=== PATIENT | female | born 1970 | race Caucasian/White ===

== ENCOUNTER 2018-11-18 17:20 | Emergency (ER) | payer OTHER ==
[~2018-11-18] VITALS: Ht 165.1 cm; Wt 74.8 kg
[2018-11-18] MEDS ORDERED: PENICILLIN V P500 MG PO (17:57)
[2018-11-18] MEDS ORDERED: ULTRAM 50MG TAB50 MG PO (17:57)
[2018-11-18] MEDS ORDERED: NAPROSYN500 MG PO (17:57)
[2018-11-18] MEDS ORDERED: HYDROCHLOROTH12.5 M2 PO (18:00)
[2018-11-18 18:56] VITALS: BP 192/99
== END 2018-11-18 18:45 | disposition home or self-care (01) ==
LOC: ER 17:20
DX: K02.9 Dental caries, unspecified (principal); K04.7 Periapical abscess without sinus; I10 Essential (primary) hypertension

== ENCOUNTER 2019-06-20 15:19 | Inpatient (IN) | payer OTHER ==
[~2019-06-20] VITALS: Ht 165.1 cm; Wt 77.8 kg
--- NOTE | ~2019-06-20 | H ---
[facility] [place] [address] HISTORY AND PHYSICAL Name: FRANCISCA SLATER Room #: 170-7 ADM IN M.R.#: [id number] Admission: 06/20/19 ������������������ Attend Phys: Carmelita Pickard MD Discharge: ������������������ Date of : 66 Report #: [id number] THIS REPORT FOR: //name// CC: [facility] physician/PCP Carmelita Pickard DATE OF SERVICE: 06/20/2019 CHIEF COMPLAINT: Difficulty breathing and persistent cough. HISTORY OF PRESENT ILLNESS: The patient is a very pleasant 49-year-old female with a known history of rheumatoid arthritis, which was diagnosed 10 years ago and also has asthma and informs me that she has been having upper respiratory infection and cough, cold for the last couple of days, actually for at least 3-4 weeks and she does not have a primary care provider, so she went to see a provider at [facility] as a walk-in. She was evaluated and was given a breathing treatment and prednisone and a cough syrup and was advised to come back for followup, however, for the last 1-1/2 days her cough and shortness of breath has progressively worsened and she has been having some fever as well as sweats and chills. The patient realized that she was not getting better and so she decided to come to the hospital for further evaluation. The patient has not had any exposure to any sick contact and has not had any sore throat, sinus drainage or ear infections. The patient denies any associated nausea, vomiting, diarrhea or GI issues. The patient has not had any dysuria, hematuria, back pain, frequency, urgency of urination as well. REVIEW OF SYSTEMS: Completely negative for any dizziness, lightheadedness or syncopal episodes, chest pain, or palpitations. The patient, however, informs me that since she has been in the Emergency Room and for the last few hours she has felt that her heart rate is little faster and she has felt like she has high fever and she feels hot and cold with frequent change in her feeling of feeling very, very hot and then very, very cold, but has not taken a temperature and so cannot really tell me how high the fever has been. PAST MEDICAL HISTORY: Significant for: 1. Bronchial asthma, not treated. 2. Rheumatoid arthritis diagnosed 10 years ago, but not treated. 3. Multiple neuromas which has been resected at different times. 4. Degenerative joint disease with joint deformities related to rheumatoid arthritis. ALLERGIES: The patient has no known drug allergies. CURRENT MEDICATIONS: She has completed the course of prednisone, cough syrup and an [place] [address] HISTORY AND PHYSICAL Name: FRANCISCA SLATER Room #: 170-7 [facility] IN .R.#: [id number] Admission: 06/20/19 ������������������ Attend Phys: Carmelita Pickard MD Discharge: ������������������ Date of : 66 Report #: [id number] PERSONAL AND SOCIAL HISTORY: The patient quit smoking 6 months ago and prior to that, she was smoking half pack per day. She denies any alcohol intake and denies any recreational drug use. Her emergency contact is a 23-year-old daughter, Carla Chavez and her number is [phone] and the patient wishes to be full code. 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 FAMILY HISTORY: Significant for mother dealing with some abdominal cancer. She thinks it is colon cancer, but not sure in [place] and father who is dealing with diabetes mellitus type 2. PAST SURGICAL HISTORY: Significant for resection of neuromas in right wrist as well as left wrist and also deviated nasal septum surgery and some foot surgery. REVIEW OF SYSTEMS: Please see 10-point review of systems above. PHYSICAL EXAMINATION: VITAL SIGNS: Temperature 38.4, heart rate 127, respirations 16, blood pressure 136/82, pulse oximetry 91% on 2 liters of oxygen by nasal cannula in the Emergency Room. GENERAL: Alert and oriented to time, place and person, very pleasant 49-year-old female with flushed face as well as diaphoresis and has mild tachypnea, but no use of accessory muscles of respiration and sitting upright and able to finish sentences completely. HEENT: Normocephalic, atraumatic. Pupils are equally round and reactive to light. Conjunctivae are clear. Sclerae are nonicteric. Extraocular muscle movements are intact. Oropharynx is clear. No postnasal drip is noted. NECK: Supple, no lymphadenopathy, no JVD. HEART: S1, S2 regular. Tachycardia noted. No murmur, no S3, no S4. LUNGS: Bilaterally very poor air entry with expiratory wheezes scattered in all lung murphy. Bilaterally symmetrical chest expansion present as noted above. No accessory muscles of respiration are being used. ABDOMEN: Soft, nontender, nondistended, normoactive bowel sounds. The patient does not have any organomegaly. EXTREMITIES: No edema in both lower extremities. SKIN: The patient has a well-healed scar in both her extremities as well as in the foot and no rashes noted. NEUROLOGIC: Completely nonfocal. LABORATORY DATA: The patient has a urinalysis with a pH of 6.0, specific gravity 1.005 and 3+ blood and otherwise completely negative. Hematology indicates WBC elevated to 22,000 with 84% segmented neutrophil and 8% band neutrophils. The patient has some lymphopenia noted as 4000, hemoglobin is 12.7, hematocrit is 38.0. Next chemistries indicate sodium 133, potassium 3.7, chloride 99, bicarbonate 21, anion gap 13, BUN 7, creatinine 0.8, calculated GFR 76, glucose 147. Lactic acid was 1.4, calcium 8.1, total bilirubin 0.5, AST 13, [facility] [address] [place] [address] HISTORY AND PHYSICAL Name: FRANCISCA SLATER Room #: 170-7 ADM IN [facility]#: [id number] Admission: 06/20/19 ������������������ Attend Phys: Carmelita Pickard MD Discharge: ������������������ Date of : 66 Report #: [id number] ALT 23, alkaline phosphatase 84, total protein 7.6, albumin 3.3 and procalcitonin 0.08. Electrocardiogram was done and that indicated a sinus tachycardia, left atrial enlargement and borderline repolarization changes, otherwise no acute changes and chest x-ray indicates no acute radiographic abnormality in the chest. ASSESSMENT AND PLAN: 1. Acute asthma exacerbation. 2. Community-acquired pneumonia or pneumonitis with bronchitis. 3. SIRS as indicated with a fever, tachycardia and acute asthma exacerbation. 4. Rheumatoid arthritis with underlying immunocompromised state. 5. Bronchial asthma. 6. The patient is full code. DVT prophylaxis with Lovenox and GI prophylaxis with Pepcid. PLAN: The patient is being admitted to the Med/Surg telemetry and would go ahead and give antibiotics for community-acquired pneumonia coverage and she has received normal saline bolus in the Emergency Room. I would go ahead and add vancomycin because of the patient being immunocompromised and she has significant bandemia with leukocytosis of 22,000 and because of lack of health care as well as when she presented to [facility] services she was given prednisone, but she was not given any antibiotics and the patient has this acute worsening of illness for the last 2 days with fever and chills and so we will cover with additional coverage with vancomycin until the cultures are back. Strep pneumo antigen and legionella antigen have been sent and we will go ahead and do respiratory viral panel as well. We will go ahead and write for DuoNeb breathing treatments q.4 hours and plan of care was discussed with the patient. We will put pharmacy consult for vancomycin monitoring and we will write for albuterol q. 2 hour p.r.n. as needed for wheezing in between and Solu-Medrol 125 mg has been given for acute asthma exacerbation and I would go ahead and would give 80 mg of Solu-Medrol q. 8 hours and reassess. If the patient does not respond to the management, then only we will consult Pulmonary and plan of care was discussed with the patient in detail as well as with the ER provider and the nurse taking care of the patient in the Emergency Room. ��������������������������������������������� ���������������������������������������� By: ��������������������������������������������� 1859 30 Carmelita Pickard MD /nt
[~2019-06-20 15:19] MED LIST: HYDROCHLOROTH12.5 M2 PO; NAPROSYN500 MG PO; PENICILLIN V P500 MG PO; ULTRAM 50MG TAB50 MG PO
[2019-06-20 15:20] VITALS: BP 136/82
[2019-06-20] MEDS ORDERED: LISINOPRIL10 MG PO (15:25)
[2019-06-20] MEDS ORDERED: ACCUNEB SO1.25 MG/1 INH (15:25)
[2019-06-20 15:53] LABS: HEMATOCRIT 38.5 % (37.0-47.0); HEMOGLOBIN 12.7 gm/dL (12.0-15.0); MCH 28.9 pg (26.0-34.0); MCV 87.6 fL (80.0-100.0); PLATELET COUNT 342 thou/uL (150-400); RDW 12.6 % (10.5-14.5)
[2019-06-20 16:00] LABS: CALCIUM 8.1 mg/dL (8.5-10.1); CREATININE 0.8 mg/dL (0.6-1.0); POTASSIUM 3.7 mmol/L (3.5-5.1)
[2019-06-20 16:06] LABS: ALBUMIN 3.3 g/dL (3.4-5.0); TOTAL BILIRUBIN 0.5 mg/dL (<0.1-1.0); TOTAL PROTEIN 7.6 g/dL (6.4-8.2)
[2019-06-20 16:11] LABS: ABSOLUTE NEUTROPHILS 20.2 thou/uL (1.4-8.2); PLATELET ESTIMATE NORMAL
[2019-06-20 16:44] LABS: URINE BILIRUBIN NEGATIVE (Negative); URINE BLOOD 3+ (Negative); URINE CLARITY CLEAR; URINE COLOR YELLOW; URINE GLUCOSE-RANDOM* NEGATIVE (Negative); URINE KETONES NEGATIVE (Negative); URINE LEUKOCYTES-REFLEX NEGATIVE (Negative); URINE NITRITE-REFLEX NEGATIVE (Negative); URINE PROTEIN (DIPSTICK) NEGATIVE (Negative); URINE SPECIFIC GRAVITY <= 1.005 (1.005-1.035); URINE UROBILINOGEN 0.2 E.U./dl (0.2-1.0)
[2019-06-20 16:54] LABS: BACTERIA-REFLEX 1-9 Few /HPF (None Seen); CASTS None Seen /LPF (None Seen); CRYSTALS None Seen /LPF (None Seen); SQUAMOUS 0-3 Few /LPF (0-3); URINE RBC 0-2 Rare /HPF (0-2); URINE WBC-REFLEX None Seen /HPF (0-5)
[2019-06-20 17:20] VITALS: BP 139/72
[2019-06-20 19:51] VITALS: BP 112/61
[2019-06-20 20:17] VITALS: BP 112/61
[2019-06-20 20:35] VITALS: BP 113/64
--- NOTE | 2019-06-20 21:23 | NUR ---
PT ARRIVED ON UNIT AT 2019 IN STABLE CONDITION. PT ORIENTED TO ROOM. PLACED ON TELEMETRY. WILL ADMIT PT.
[2019-06-20 23:54] VITALS: BP 121/68
[2019-06-21] VITALS (7 sets, daily range): BP systolic 131–168; BP diastolic 69–101
--- NOTE | 2019-06-21 04:30 | NUR ---
PT REMAINS WEAK AND FATIGUED BUT IN BED RESTING. HAS HAD DRY COUGH OFF AND ON ALL NIGHT BUT HAS PRN ROBUTUSSIN AVAILABLE. REMAINS ON MAINTENANCE IVFs. SR/ST ON MONITOR. CONTINUES WITH RT TX AND SOLUMEDROL. PT HAS BEEN AFEBRILE.
--- NOTE | 2019-06-21 05:41 | NUR ---
ON ADMIT, DISCUSSED WITH PT REGARDING SIGNING CONSENT FOR TELE INTERFERENCE, ALLOWED FOR QUESTIONS AND PT V/U
[2019-06-21 05:45] LABS: CALCIUM 8.7 mg/dL (8.5-10.1); CREATININE 0.7 mg/dL (0.6-1.0); HEMATOCRIT 38.2 % (37.0-47.0); HEMOGLOBIN 12.2 gm/dL (12.0-15.0); MAGNESIUM 1.9 mg/dL (1.8-2.4); MCH 28.4 pg (26.0-34.0); MCV 88.9 fL (80.0-100.0); PHOSPHORUS 3.3 mg/dL (2.5-4.9); POTASSIUM 3.7 mmol/L (3.5-5.1); RBC 4.3 mil/uL (4.20-5.00); RDW 12.8 % (10.5-14.5); WBC 16.2 thou/uL (4.0-11.0)
--- NOTE | 2019-06-21 14:43 | EKG ---
[address] [address] ELECTROCARDIOGRAM REPORT Name: BRYON,FRANCISCA Room #: 203-P ADM IN M.R.#: [id number] ������������������ Admission: 06/20/19 ������������������ Attend Phys: Camrelita Pickard MD Discharge: ������������������ Date of : 66 Report #: [id number] ����������������������������������������������������������������� [id number] THIS REPORT FOR: //name// [facility] ED Test Date: 2019-06-20 Test Time: 15:29:28 Pat Name: FRANCISCA SLATER Department: Room: 203 Gender: F Head Bookkeeper: ISAEL : 1970 Requested By: Mukesh Hale Order Number: [id number] MD: Robles Conner Measurements Intervals [place] Rate: 127 P: 77 AL: 127 QRS: 54 QRSD: 82 T: 224 QT: 266 QTc: 387 Interpretive Statements Sinus tachycardia Left atrial enlargement Borderline repolarization abnormality No previous ECG available for comparison Electronically Signed On 06-21-2019 14:43:09 CDT by Robles Conner [email or web address] ��������������������������������������������� <ELECTRONICALLY SIGNED> ���������������������������������������� By: Robles Conner MD ��������������������������������������������� 06/21/19 1443 1529 1529 Robles Conner MD /EPI
--- NOTE | 2019-06-21 16:12 | NUR ---
Chart reviewed and cm assessment completed at bedside. Pt is a&ox4 and indicates that she lives with her dtr in an apt. She works parttime but struggles due to hx of RA. She moved here from [place] 6+months ago and has struggled to access medical treatment. She has been to [facility] a couple of times and [place]. She has never heard if approved or denied. She notes her health has declined significantly since her move here and feels she many no longer be able to work. [facility] referal in process to help with [place] disability and [place]. Pt was tearful and frustrated that she her immune system is compromised. Support provided. Plan to f/u with [facility] services at pr.
--- NOTE | 2019-06-21 18:16 | NUR ---
ASSUMED CARE AROUND 0700. AXOX4. C/O L SIDED HEADAHCE AND FACE ACHE. REPORTED TO AND ORDERS ARE RECEIVED. CT CHEST COMPLETED AND RESULTS WAS DISCUSSED WITH AND PATIENT AT BEDSIDE. C/O EXCESSIVE COUGHINH WITH TACHYCARDIA. PT WAS USING INHALER FROM HOME. MED NOW STORED IN PHARMACY. HIGH BP ADDRESSED WITH . PRN HYDRALAZINE GIVEN TO PT. NO S/S ACUTE DISTRESS NOTED OR REPORTED AT THIS TIME. WILL CONT TO MONITOR FOR ANY CHANGES IN CONDITION.
[2019-06-22 00:07] VITALS: BP 154/89
[2019-06-22 03:37] VITALS: BP 150/83
[2019-06-22 05:30] LABS: HEMATOCRIT 32.5 % (37.0-47.0); HEMOGLOBIN 10.6 gm/dL (12.0-15.0); MCHC 32.7 g/dL (28.0-37.0); MCV 88.7 fL (80.0-100.0); RBC 3.67 mil/uL (4.20-5.00); RDW 12.8 % (10.5-14.5)
[2019-06-22 05:55] LABS: CALCIUM 8.3 mg/dL (8.5-10.1); CREATININE 0.6 mg/dL (0.6-1.0); MAGNESIUM 1.8 mg/dL (1.8-2.4); PHOSPHORUS 3.6 mg/dL (2.5-4.9); POTASSIUM 3.6 mmol/L (3.5-5.1)
--- NOTE | 2019-06-22 06:53 | NUR ---
ASSUMED CARE OF PT @1900 PT A&OX4 WITH C/O COUGHING AND PAIN. MEDS GIVEN SEE EMAR. PT UP AD JOANNA TO THE BATHROOM. ON SINUS TACHY WHEN COUGHING. PT HAD A BATH TONIGHT. COUGH SYRUP GIVEN FOR MGMNT WILL CONT TILL EOS
[2019-06-22 07:40] VITALS: BP 141/75
[2019-06-22 11:25] VITALS: BP 146/78
[2019-06-22 15:50] VITALS: BP 159/93
--- NOTE | 2019-06-22 18:50 | NUR ---
CAME FROM SECOND FLOOR, AT 1840, SHE IS ALERT AND ORIENTED X 4, ONLY COMPLAINT IS FEELING SOB, RT NOTIFIED AND IS HERE NOW ADMINISTERING RT TX, SHE DENIES PAIN AND DENIES ANY NEEDS AT THIS TIME.
--- NOTE | 2019-06-22 19:01 | NUR ---
ASSUMED CARE OF PATIENT AT 0700. ASSESSMENTS CHARTED. PATIENT HAS A PRODUCTIVE COUGH AND COMPLAINS OF A HEADACHE FROM COUGHING. EXTRA STRENGTH TYLENOL ALLEVIATED THE HEADACHE. PATIENT ON Q6 GUAIFENESIN LIQUID WHICH WE TOOK IN A SCHEDULED FORMATION AND PUSHED FLUIDS, THIS SIGNIFICANTLY DECREASED HER COUGH TODAY. PATIENT GETTING BLOOD SUGARS CHECKED AC&HS IN THE 200-300'S. PATIENT INFORMED THIS AFTERNOON THAT SHE IS A NEWLY DIAGNOSED DIABETIC. PATIENT INFORMATION PRINTED OUT AND GIVEN TO THE PATIENT. PATIENT DOING MUCH BETTER THAN SHE WAS AT THE BEGINNING OF THE SHIFT. PATIENT TRANSFERRED TO [facility] AT 1800.
[2019-06-22 20:35] VITALS: BP 148/85
[2019-06-23 04:08] VITALS: BP 152/89
[2019-06-23 05:36] LABS: CALCIUM 8.5 mg/dL (8.5-10.1); CREATININE 0.6 mg/dL (0.6-1.0); MAGNESIUM 1.9 mg/dL (1.8-2.4); PHOSPHORUS 4.5 mg/dL (2.5-4.9)
[2019-06-23 05:39] LABS: HEMATOCRIT 31.5 % (37.0-47.0); HEMOGLOBIN 10.5 gm/dL (12.0-15.0); MCH 29.3 pg (26.0-34.0); MCHC 33.2 g/dL (28.0-37.0); MCV 88.2 fL (80.0-100.0); RBC 3.57 mil/uL (4.20-5.00); RDW 12.8 % (10.5-14.5); WBC 15.7 thou/uL (4.0-11.0)
--- NOTE | 2019-06-23 07:38 | NUR ---
PATIENT ALERT AND ORIENTED X4. IVF INFUSING W/O COMPLICATION ALONG WITH IVPB ANTIBIOTICS. PATIENT HAS A COUGH AND REQUIRES RT TREATMENTS. MEDICATED WITH GUAIFENESIN, TYLENOL AND BENEDRYL. BS MONITORED PER ORDER. RESTING QUIETLY.
[2019-06-23 08:36] VITALS: BP 149/84
[2019-06-23 13:45] VITALS: BP 150/83
--- NOTE | 2019-06-23 19:44 | NUR ---
PT ASSESSED AT START OF SHIFT. C/O CONSTIPATION CHRONIC PROBLEM. SM BM THIS SHIFT AFTER LAXATIVE AND SUPPOSITORY. AMBULATED THE HALSS W/ PULSE OX ON 3LNC. SAT 96%, DROPPED TO 93% AND HEART RATE UP TO 110 W/ WALK AROUND THE UNIT. STATES SHE'S FEELING MUCH BETTER THIS EVENING FROM THIS AM.
[2019-06-23 20:19] VITALS: BP 128/81
--- NOTE | 2019-06-24 00:49 | NUR ---
PT IS ALERT AND ORIENTED. SHE REMAINS UP AD JOANNA. DENIES PAIN. GETTING BREATHING TREATMENTS NEEDED. PT GOT A SHOWER. CONTINUES ON IV ABTS AND FLUIDS.AFEBRILE. DENIES COUGH. WILL CONTINUE WITH POC TILL EOS.
[2019-06-24 04:00] VITALS: BP 157/90
[2019-06-24 06:25] LABS: HEMATOCRIT 34.7 % (37.0-47.0); HEMOGLOBIN 11.4 gm/dL (12.0-15.0); MCH 28.9 pg (26.0-34.0); MCHC 32.7 g/dL (28.0-37.0); MCV 88.2 fL (80.0-100.0); PLATELET COUNT 414 thou/uL (150-400); RBC 3.94 mil/uL (4.20-5.00); RDW 12.8 % (10.5-14.5); WBC 15.2 thou/uL (4.0-11.0)
[2019-06-24 06:36] LABS: CALCIUM 8.9 mg/dL (8.5-10.1); CREATININE 0.7 mg/dL (0.6-1.0); PHOSPHORUS 4.4 mg/dL (2.5-4.9); POTASSIUM 3.6 mmol/L (3.5-5.1)
[2019-06-24 07:19] LABS: ABSOLUTE NEUTROPHILS 9.4 thou/uL (1.4-8.2); ANISOCYTOSIS SLIGHT; METAMYELOCYTES 3 %; MYELOCYTES 1 %
[2019-06-24 07:45] VITALS: BP 172/96
[2019-06-24] MEDS ORDERED: CARDIZEM CD120 MG PO (11:47)
[2019-06-24] MEDS ORDERED: GLIPIZIDE 5 MG T5 MG PO (11:47)
[2019-06-24] MEDS ORDERED: PREDNISONE 10 M10 MG PO (11:48)
[2019-06-24] MEDS ORDERED: AUGMENTIN 875-1 EACH PO (11:49)
[2019-06-24] MEDS ORDERED: FLOVENT HFA 4444 MCG INH (11:58)
[2019-06-24 15:47] VITALS: BP 146/83
--- NOTE | 2019-06-24 17:06 | NUR ---
CARE TEAM INDICATED THAT PT IS MEDICALLY STABLE TO DC HOME THIS DAY. PT INDICATED SHE WASN'T ABLE TO PAY FOR HER MEDICATIONS UPON DC. CM HAD PT'S MEDS PRICED OUT AT THE OP PHARMACY AND THEY CAME TO $226.29. CM REQUESTED AND RECIEVED PERMISSION FOR CM DEPARTMENT TO VOUCHER PT'S MEDS. THE INHALER WILL BE ORDERED AND BE READY FOR JINRIKSHA DRIVER TOMORROW. PT IS AWARE. NO OTHER CM INTERVENTION INDICATED. CASE CLOSED.
--- NOTE | 2019-06-24 20:35 | NUR ---
PATIENT ALERT AND ORIENTED AND COOPERATIVE WITH POC. CONSULTED WITH RESPIRATORY CARE ASSISTANT REGARDING DIABETES. PATIENT DISCHARGED TO HOME IN STABLE CONDITION WITH DISCHARGE ORDERS, INSTRUCTIONS AND PRESCRIPTIONS. PATIENT PERSONAL INHALER GIVEN PRIOR TO DISCHARGE FROM PHARMACY. ALL PERSONAL BELONGINGS GIVEN TO PATIENT.
== END 2019-06-24 16:02 | disposition home or self-care (01) | DRG 871 ==
LOC: ER 15:19 → 2N 17:14 → EROBS 17:14 → 2N 20:14 → 4E 06-22 18:22
PROVIDERS: Emergency Medicine; ADMIT Internal Medicine
DX: A41.9 Sepsis, unspecified organism (principal); J18.1 Lobar pneumonia, unspecified organism; J45.901 Unspecified asthma with (acute) exacerbation; I10 Essential (primary) hypertension; M06.9 Rheumatoid arthritis, unspecified; E11.9 Type 2 diabetes mellitus without complications; D64.9 Anemia, unspecified; R09.02 Hypoxemia; Z79.899 Other long term (current) drug therapy; Z87.891 Personal history of nicotine dependence; Z83.3 Family history of diabetes mellitus; Z80.0 Family history of malignant neoplasm of digestive organs
CPT/HCPCS: 10081; 10783